=== PATIENT | male | born 1935 | race Caucasian/White ===

== ENCOUNTER → 2022-05-14 | Outpatient (CLI) | payer MEDICARE | LOC: KOH-I 13:42 | DX: M25.571 Pain in right ankle and joints of right foot (principal); M25.572 Pain in left ankle and joints of left foot; M19.072 Primary osteoarthritis, left ankle and foot; M19.071 Primary osteoarthritis, right ankle and foot | CPT/HCPCS: 73610; 73630 ==

== ENCOUNTER 2022-06-03 19:43 | Emergency (ER) | payer MEDICARE ==
[2022-06-03 20:56] LABS: RED BLOOD COUNT 4.49 M/UL (4.20-5.50); WHITE BLOOD COUNT 5.6 K/UL (4.5-11.0)
[2022-06-04] MEDS ORDERED: SENNA8.6 MG PO (03:28)
[2022-06-04] MEDS ORDERED: ZOFRAN ODT 4 MG4 MG SL (03:28)
== END 2022-06-04 03:40 | disposition home or self-care (01) ==
LOC: ER1 19:43
PROVIDERS: Physician Assistant Medical
DX: K59.00 Constipation, unspecified (principal); I11.9 Hypertensive heart disease without heart failure; E78.5 Hyperlipidemia, unspecified; Z91.013 Allergy to seafood; Z79.01 Long term (current) use of anticoagulants; Z95.5 Presence of coronary angioplasty implant and graft
CPT/HCPCS: 80053; 81001; 83690; 85025; 99284; Q9967